=== PATIENT | male | born 1945 | race Caucasian/White ===

== ENCOUNTER 2018-12-08 08:40 | Day surgery (SDC) | payer MEDICARE, BC ==
[2018-12-07 12:12] LABS: PARTIAL THROMBOPLASTIN TIME 27 SECONDS (22-32)
[2018-12-07 12:17] LABS: ALBUMIN 3.9 G/DL (3.4-5.0); ANION GAP 10 (8-16); BLOOD UREA NITROGEN 16 MG/DL (7-18); BUN/CREATININE RATIO 14.2 (5.4-32.0); CALCIUM 9.2 MG/DL (8.5-10.1); CHLORIDE 105 MMOL/L (99-107); CREATININE 1.13 MG/DL (0.60-1.10); GLUCOSE 92 MG/DL (70-104); SODIUM 142 MMOL/L (135-145); eGFR 63 ML/MIN
[2018-12-07 12:28] LABS: POTASSIUM 4.5 MMOL/L (3.5-5.1)
[~2018-12-08] VITALS: Ht 190.5 cm; Wt 97.3 kg
[2018-12-08] VITALS (11 sets, daily range): BP systolic 114–141; BP diastolic 65–94
[2018-12-08] MEDS ORDERED: normal saline 1,000 ML IV SCH (09:00)
[2018-12-08] MEDS ORDERED: diphenhydrAMINE 25mg capsule PO PRN (09:00)
[2018-12-08] MEDS ORDERED: LORazepam 0.5 MG tablet PO PRN (09:00)
[2018-12-08] MEDS ORDERED: LIDOcaine/PRILOcaine 5gm cream TP ONE (09:15)
[2018-12-08] MEDS ORDERED: VITE1000C PO (09:16)
[2018-12-08] MEDS ORDERED: ASPI81TA52 PO (09:16)
[2018-12-08] MEDS ORDERED: MULT-1074 PO (09:16)
[2018-12-08] MEDS ORDERED: NITR0.4T51 SL (09:16)
[2018-12-08] MEDS ORDERED: PANT40TA4 PO (09:16)
[2018-12-08] MEDS ORDERED: ALBU6.7H9 INH (09:16)
[2018-12-08] MEDS ORDERED: MELA5CAP PO (09:16)
[2018-12-08] MEDS ORDERED: CARB-13 PO (09:16)
[2018-12-08] MEDS ORDERED: APIX5TAB3 PO (09:16)
[2018-12-08] MEDS ORDERED: ROSU20TA2 PO (09:16)
[2018-12-08] MEDS ORDERED: OMEG1CAP2 PO (09:16)
[2018-12-08] MEDS ORDERED: RAMI5CAP65 PO (09:16)
[2018-12-08] MEDS ORDERED: CARV-50 PO (09:16)
[2018-12-08] MEDS ORDERED: CLOP75TA33 PO (09:16)
[2018-12-08 09:26] LABS: BASOPHILS # (AUTO) 0.1 X10'3 (0-0.2); BASOPHILS % (AUTO) 1.2 % (0-1); EOSINOPHILS # (AUTO) 0.2 X10'3 (0-0.9); EOSINOPHILS % (AUTO) 3.1 % (0-6); HEMATOCRIT 40.4 % (42.0-52.0); HEMOGLOBIN 13.2 g/dl (14.0-17.9); LYMPHOCYTES # (AUTO) 1.2 X10'3 (1.1-4.8); LYMPHOCYTES % (AUTO) 22.9 % (21-51); MEAN CORPUSCULAR HGB CONC 32.7 g/dL (33.0-36.5); MEAN CORPUSCULAR VOLUME 88.7 FL (78-98); MEAN PLATELET VOLUME 8.2 FL (7.4-10.4); MONOCYTES # (AUTO) 0.7 X10'3 (0-0.9); NEUTROPHILS # (AUTO) 3.2 X10'3 (1.8-7.7); NEUTROPHILS % (AUTO) 59.8 % (42-75); PLATELET COUNT 233 X10'3 (140-440); RED BLOOD COUNT 4.55 X10'6 (4.70-6.10); RED CELL DISTRIBUTION WIDTH 13.6 % (11.5-14.5); WHITE BLOOD COUNT 5.4 X10'3 (4.5-11.0)
[2018-12-08] MEDS ORDERED: verapamil 2.5 mg/ml inj IV ONE (10:19)
[2018-12-08] MEDS ORDERED: nitroGLYCERIN-Tridil 50MG/D5W 250 ML IV ONE (10:19)
[2018-12-08] MEDS ORDERED: fentaNYL/PF 50MCG/1 ML 2ML syringe ONE (10:19)
[2018-12-08] MEDS ORDERED: midazolam 2 mg/2 ml injection ONE (10:19)
[2018-12-08] MEDS ORDERED: LIDOcaine 1% 30ml preserv. free vial ONE (10:20)
[2018-12-08] MEDS ORDERED: heparin 1,000unit/ml 10ml vial 10 ML ONE (10:20)
[2018-12-08] MEDS ORDERED: pneumococcal 23-VAL P-sac vacc 25 mcg/0.5ml vial IMVAC ONE (10:20)
[2018-12-08] MEDS ORDERED: iohexol 350MG/ML 100ml bottle IV ONE ×2 (10:20→11:34)
[2018-12-08] MEDS ORDERED: iohexol 350 MG/ML 50ML vial IV ONE (10:20)
[2018-12-08] MEDS ORDERED: normal saline 1000ml 1,000 ML IV SCH (12:30)
[2018-12-08] MEDS ORDERED: ibuprofen tablet 400 MG TABLET PO ONE (14:35)
[2018-12-08 16:01] LABS: ISTAT Hct MIX 37 %PCV (42-52); ISTAT O2 SATURATION MIX VENOUS 60 % (60-80); ISTAT SOURCE MIX
[2018-12-08 16:01] LABS: ISTAT HGB ART 12.9 g/dl (14.0-18.0); ISTAT Hct ART 38 %PCV (42-52); ISTAT O2 SATURATION ARTERIAL 92 % (95-98); ISTAT SOURCE ART
== END 2018-12-08 18:00 | disposition home or self-care (01) ==
LOC: SSTAY O 08:40
PROVIDERS: ATTEND Internal Medicine Cardiovascular Disease
DX: I25.119 Atherosclerotic heart disease of native coronary artery with unspecified angina pectoris (principal); I10 Essential (primary) hypertension; E78.5 Hyperlipidemia, unspecified; I48.0 Paroxysmal atrial fibrillation; I25.2 Old myocardial infarction; Z95.5 Presence of coronary angioplasty implant and graft; Z79.82 Long term (current) use of aspirin; Z79.899 Other long term (current) drug therapy; Z98.890 Other specified postprocedural states; Z98.1 Arthrodesis status; Z79.01 Long term (current) use of anticoagulants
CPT/HCPCS: 36415; 80048; 82803; 85014; 85025; 85610; 85730; 93005; 93460; 99152; 99153; C1769; C1894; J1644; J2001; J2250; J3010; J7030; Q0163; Q9967; A4620; A6258; J3490

== ENCOUNTER 2019-01-25 06:48 | Day surgery (SDC) | payer MEDICARE, BC ==
[~2019-01-25] VITALS: Ht 160 cm; Wt 94.5 kg
[2019-01-25] VITALS (14 sets, daily range): BP systolic 90–125; BP diastolic 49–88
[~2019-01-25 06:48] MED LIST: ALBU6.7H9 INH; APIX5TAB3 PO; ASPI81TA52 PO; CARB-13 PO; CARV-50 PO; CLOP75TA33 PO; MELA5CAP PO; MULT-1074 PO; NITR0.4T51 SL; OMEG1CAP2 PO; PANT40TA4 PO; RAMI5CAP65 PO; ROSU20TA2 PO; VITE1000C PO
[2019-01-25] MEDS ORDERED: LISI-642 PO (07:21)
[2019-01-25] MEDS ORDERED: FURO-150 PO (07:21)
[2019-01-25] MEDS ORDERED: SOTA80TA73 PO (07:21)
[2019-01-25] MEDS ORDERED: MIDAZolam 5mg/ml 2ml vial IV ONE (07:25)
[2019-01-25] MEDS ORDERED: diphenhydrAMINE 25mg capsule PO ONE (07:25)
[2019-01-25] MEDS ORDERED: morphine 10mg/ml inj. IV ONE (07:25)
[2019-01-25] MEDS ORDERED: normal saline 1000ml 1,000 ML IV SCH (07:25)
[2019-01-25] MEDS ORDERED: amiodarone in dextrose, iso-osm 150mg/100ml bag IV ONE (07:25)
[2019-01-25] MEDS ORDERED: LORazepam 0.5 MG tablet PO ONE (07:25)
[2019-01-25] MEDS ORDERED: atropine 0.1mg/ml 10ml syringe IV ONE (07:25)
[2019-01-25 07:51] LABS: BASOPHILS % (AUTO) 0.9 % (0-1); EOSINOPHILS # (AUTO) 0.1 X10'3 (0-0.9); EOSINOPHILS % (AUTO) 2.3 % (0-6); HEMATOCRIT 42.5 % (42.0-52.0); HEMOGLOBIN 14.3 g/dl (14.0-17.9); LYMPHOCYTES # (AUTO) 1.7 X10'3 (1.1-4.8); LYMPHOCYTES % (AUTO) 34.1 % (21-51); MEAN CORPUSCULAR HEMOGLOBIN 29.2 PG (27.0-31.0); MEAN CORPUSCULAR HGB CONC 33.7 g/dL (33.0-36.5); MEAN CORPUSCULAR VOLUME 86.8 FL (78-98); MEAN PLATELET VOLUME 8.3 FL (7.4-10.4); MONOCYTES # (AUTO) 0.5 X10'3 (0-0.9); NEUTROPHILS # (AUTO) 2.6 X10'3 (1.8-7.7); NEUTROPHILS % (AUTO) 52.7 % (42-75); PLATELET COUNT 232 X10'3 (140-440); RED CELL DISTRIBUTION WIDTH 14.2 % (11.5-14.5)
[2019-01-25 07:59] LABS: ALBUMIN 3.8 G/DL (3.4-5.0); ANION GAP 5 (8-16); BLOOD UREA NITROGEN 14 MG/DL (7-18); BUN/CREATININE RATIO 12.5 (5.4-32.0); CALCIUM 9.2 MG/DL (8.5-10.1); CHLORIDE 106 MMOL/L (99-107); CREATININE 1.12 MG/DL (0.60-1.10); GLUCOSE 104 MG/DL (70-104); SODIUM 140 MMOL/L (135-145); TOTAL CARBON DIOXIDE 28.6 MMOL/L (24-32); eGFR 64 ML/MIN
== END 2019-01-25 11:50 | disposition home or self-care (01) ==
LOC: SSTAY O 06:48
PROVIDERS: ATTEND Internal Medicine Cardiovascular Disease
DX: I48.0 Paroxysmal atrial fibrillation (principal); E78.5 Hyperlipidemia, unspecified; I25.10 Atherosclerotic heart disease of native coronary artery without angina pectoris; Z95.5 Presence of coronary angioplasty implant and graft; Z79.899 Other long term (current) drug therapy
CPT/HCPCS: 36415; 80048; 85025; 85610; 92960; 93005; J0282; J0461; J2250; J2270; J7030; Q0163

== ENCOUNTER 2019-04-27 07:08 | Day surgery (SDC) | payer MEDICARE, BC ==
[2019-04-27] VITALS (12 sets, daily range): BP systolic 91–141; BP diastolic 47–98
[~2019-04-27] VITALS: Ht 190.5 cm; Wt 95.3 kg
[~2019-04-27 07:08] MED LIST changes: -ASPI81TA52 PO; -CARV-50 PO; +FURO-150 PO; +LISI-642 PO; -RAMI5CAP65 PO; +SOTA80TA73 PO
[2019-04-27] MEDS ORDERED: morphine 10mg/ml inj. IV ONE (07:50)
[2019-04-27] MEDS ORDERED: MIDAZolam 1mg/ml 10ml vial IV ONE (07:50)
[2019-04-27] MEDS ORDERED: normal saline 1000ml 1,000 ML IV SCH (07:50)
[2019-04-27] MEDS ORDERED: LORazepam 0.5 MG tablet PO ONE (07:50)
[2019-04-27] MEDS ORDERED: atropine 0.1mg/ml 10ml syringe IV ONE (07:50)
[2019-04-27 08:12] LABS: BASOPHILS # (AUTO) 0.1 X10'3 (0-0.2); BASOPHILS % (AUTO) 1.1 % (0-1); EOSINOPHILS # (AUTO) 0.2 X10'3 (0-0.9); EOSINOPHILS % (AUTO) 2.7 % (0-6); HEMATOCRIT 39.9 % (42.0-52.0); HEMOGLOBIN 13.5 g/dl (14.0-17.9); LYMPHOCYTES # (AUTO) 1.7 X10'3 (1.1-4.8); LYMPHOCYTES % (AUTO) 29.2 % (21-51); MEAN CORPUSCULAR HEMOGLOBIN 29.7 PG (27.0-31.0); MEAN CORPUSCULAR HGB CONC 33.8 g/dL (33.0-36.5); MEAN CORPUSCULAR VOLUME 87.9 FL (78-98); MONOCYTES # (AUTO) 0.6 X10'3 (0-0.9); MONOCYTES % (AUTO) 9.9 % (2-12); NEUTROPHILS # (AUTO) 3.3 X10'3 (1.8-7.7); NEUTROPHILS % (AUTO) 57.1 % (42-75); PLATELET COUNT 266 X10'3 (140-440); RED BLOOD COUNT 4.54 X10'6 (4.70-6.10); RED CELL DISTRIBUTION WIDTH 15.9 % (11.5-14.5); WHITE BLOOD COUNT 5.7 X10'3 (4.5-11.0)
[2019-04-27] MEDS ORDERED: POTA10TA19 PO (08:21)
[2019-04-27] MEDS ORDERED: CARV6.253 PO (08:21)
[2019-04-27] MEDS ORDERED: RAMI5CAP65 PO (08:21)
[2019-04-27 08:39] LABS: ALBUMIN 3.9 G/DL (3.4-5.0); ANION GAP 8 (8-16); BLOOD UREA NITROGEN 17 MG/DL (7-18); CALCIUM 9.1 MG/DL (8.5-10.1); CHLORIDE 105 MMOL/L (99-107); CREATININE 1.55 MG/DL (0.60-1.10); GLUCOSE 98 MG/DL (70-104); POTASSIUM 4.1 MMOL/L (3.5-5.1); SODIUM 143 MMOL/L (135-145); TOTAL CARBON DIOXIDE 30.3 MMOL/L (24-32); eGFR 44 ML/MIN
[2019-04-27] MEDS ORDERED: amiodarone in dextrose, iso-osm 150mg/100ml bag IV ONE (10:45)
== END 2019-04-27 12:15 | disposition home or self-care (01) ==
LOC: SSTAY O 07:08
PROVIDERS: ATTEND Internal Medicine Cardiovascular Disease
DX: I48.19 Other persistent atrial fibrillation (principal)
CPT/HCPCS: 36415; 80048; 85025; 85610; 92960; 93005; 94760; J2250; J2270; J7030

== ENCOUNTER 2020-03-22 07:03 | Day surgery (SDC) | payer MEDICARE, BC ==
[2020-03-21 15:44] LABS: BASOPHILS # (AUTO) 0.1 X10'3 (0-0.2); EOSINOPHILS # (AUTO) 0.1 X10'3 (0-0.9); EOSINOPHILS % (AUTO) 1.6 % (0-6); HEMATOCRIT 43.1 % (42.0-52.0); HEMOGLOBIN 13.9 g/dl (14.0-17.9); LYMPHOCYTES # (AUTO) 1.5 X10'3 (1.1-4.8); MEAN CORPUSCULAR HEMOGLOBIN 28.6 PG (27.0-31.0); MEAN CORPUSCULAR HGB CONC 32.4 g/dL (33.0-36.5); MEAN CORPUSCULAR VOLUME 88.2 FL (78-98); MEAN PLATELET VOLUME 8.4 FL (7.4-10.4); MONOCYTES # (AUTO) 0.6 X10'3 (0-0.9); MONOCYTES % (AUTO) 8.9 % (2-12); NEUTROPHILS # (AUTO) 4.9 X10'3 (1.8-7.7); NEUTROPHILS % (AUTO) 67.5 % (42-75); PLATELET COUNT 250 X10'3 (140-440); RED BLOOD COUNT 4.88 X10'6 (4.70-6.10); RED CELL DISTRIBUTION WIDTH 13.8 % (11.5-14.5); WHITE BLOOD COUNT 7.2 X10'3 (4.5-11.0)
[2020-03-21 16:00] LABS: ALANINE AMINOTRANSFERASE 11 U/L (12-78); ALKALINE PHOSPHATASE 61 IU/L (46-116); ANION GAP 5 (8-16); ASPARTATE AMINO TRANSFERASE 27 U/L (10-37); BILIRUBIN,TOTAL 0.7 MG/DL (0.1-1.0); BLOOD UREA NITROGEN 18 MG/DL (7-18); BUN/CREATININE RATIO 14.9 (5.4-32.0); CALCIUM 9.8 MG/DL (8.5-10.1); CHLORIDE 105 MMOL/L (99-107); CREATININE 1.21 MG/DL (0.60-1.10); GLUCOSE 102 MG/DL (70-104); POTASSIUM 4.3 MMOL/L (3.5-5.1); SODIUM 142 MMOL/L (135-145); TOTAL CARBON DIOXIDE 32.4 MMOL/L (24-32); TOTAL PROTEIN 8.2 G/DL (6.4-8.2); eGFR 58 ML/MIN
[~2020-03-22] VITALS: Ht 190.5 cm; Wt 93.7 kg
[2020-03-22] VITALS (22 sets, daily range): BP systolic 94–132; BP diastolic 49–86
[~2020-03-22 07:03] MED LIST changes: +CARV6.253 PO; -PANT40TA4 PO; +PANT40TA54 PO; +POTA10TA19 PO; +RAMI5CAP65 PO; -SOTA80TA73 PO
[2020-03-22] MEDS ORDERED: morphine 10mg/ml inj. IV ONE (07:40)
[2020-03-22] MEDS ORDERED: fentaNYL/PF 50MCG/1 ML 2ML syringe IV ONE (07:40)
[2020-03-22] MEDS ORDERED: normal saline 1000ml 1,000 ML IV SCH (07:50)
[2020-03-22] MEDS ORDERED: diphenhydrAMINE 25mg capsule PO ONE (07:50)
[2020-03-22] MEDS ORDERED: LORazepam 0.5 MG tablet PO ONE (07:50)
[2020-03-22] MEDS ORDERED: MIDAZolam 1mg/ml 10ml vial IV ONE (07:50)
[2020-03-22] MEDS ORDERED: atropine 0.1mg/ml 10ml syringe IV ONE (07:50)
[2020-03-22] MEDS ORDERED: amiodarone 150mg/dext, iso-os 100 ML IV ONE (07:50)
== END 2020-03-22 11:00 | disposition home or self-care (01) ==
LOC: SSTAY O 07:03
PROVIDERS: ATTEND Internal Medicine Cardiovascular Disease
DX: I48.0 Paroxysmal atrial fibrillation (principal); I25.10 Atherosclerotic heart disease of native coronary artery without angina pectoris; I25.2 Old myocardial infarction; I11.0 Hypertensive heart disease with heart failure; I50.22 Chronic systolic (congestive) heart failure; I47.1 Supraventricular tachycardia; I49.5 Sick sinus syndrome; I42.9 Cardiomyopathy, unspecified; Z79.899 Other long term (current) drug therapy; Z98.890 Other specified postprocedural states; Z95.5 Presence of coronary angioplasty implant and graft
CPT/HCPCS: 36415; 80053; 85025; 92960; 93005; 94760; 94799; J2250; J2270; J7030

== ENCOUNTER 2021-09-04 07:20 | Day surgery (SDC) | payer MEDICARE, BC ==
[2021-09-04] VITALS (24 sets, daily range): BP systolic 106–144; BP diastolic 63–98
[~2021-09-04] VITALS: Ht 190.5 cm; Wt 93.8 kg
[~2021-09-04 07:20] MED LIST changes: -CLOP75TA33 PO; +POTA-192 PO; -POTA10TA19 PO; -RAMI5CAP65 PO
[2021-09-04] MEDS ORDERED: diphenhydrAMINE 25mg capsule PO ONE (07:50)
[2021-09-04] MEDS ORDERED: MIDAZolam 1mg/ml 10ml vial IV ONE (07:50)
[2021-09-04] MEDS ORDERED: amiodarone 150mg/dext, iso-os 100 ML IV ONE (07:50)
[2021-09-04] MEDS ORDERED: morphine 10mg/ml inj. IV ONE (07:50)
[2021-09-04] MEDS ORDERED: LORazepam 0.5 MG tablet PO ONE (07:50)
[2021-09-04] MEDS ORDERED: atropine 0.1mg/ml 10ml syringe IV ONE (07:50)
[2021-09-04] MEDS ORDERED: DIAZ5TAB4 PO (08:02)
[2021-09-04] MEDS ORDERED: CARB1TAB41 PO (08:02)
[2021-09-04] MEDS ORDERED: normal saline 1000ml 1,000 ML IV SCH (08:35)
== END 2021-09-04 13:20 | disposition home or self-care (01) ==
LOC: SSTAY O 07:20
PROVIDERS: ATTEND Internal Medicine Cardiovascular Disease
DX: I48.0 Paroxysmal atrial fibrillation (principal); I25.10 Atherosclerotic heart disease of native coronary artery without angina pectoris; I42.9 Cardiomyopathy, unspecified; E78.5 Hyperlipidemia, unspecified; G20 Parkinson's disease; I11.0 Hypertensive heart disease with heart failure; I49.5 Sick sinus syndrome; I50.22 Chronic systolic (congestive) heart failure; Z79.899 Other long term (current) drug therapy; Z98.890 Other specified postprocedural states; Z95.5 Presence of coronary angioplasty implant and graft
CPT/HCPCS: 92960; 93005; 94799; J0282; J2250; J2274; J7030; A4620

== ENCOUNTER → 2021-11-01 | Outpatient (CLI) | payer MEDICARE, BC ==
[~2021-11-01] MED LIST changes: +ALBU6.7H14 INH; -ALBU6.7H9 INH; +CARB1TAB41 PO; +DIAZ5TAB4 PO; -LISI-642 PO; -OMEG1CAP2 PO; -VITE1000C PO
[2021-11-01 10:28] LABS: TOTAL HEMOGLOBIN 15.2 G/dl (14.0-18.0)
== END | disposition home or self-care (01) ==
LOC: RT 10:04
PROVIDERS: ATTEND Internal Medicine Cardiovascular Disease
DX: R06.02 Shortness of breath (principal); Z79.899 Other long term (current) drug therapy; Z86.69 Personal history of other diseases of the nervous system and sense organs
CPT/HCPCS: 85018; 94010; 94727; 94729; A6449